=== PATIENT | male | born 1995 | race Caucasian/White ===

== ENCOUNTER 2020-10-26 13:10 | Emergency (ER) | payer SELFPAY ==
[~2020-10-26] VITALS: Ht 177 cm; Wt 47.6 kg
--- NOTE | 2020-10-26 13:45 | ED General ---
General Chief Complaint: General Problems/Pain Stated Complaint: NEEDS ADDITIONAL TESTING Nursing Triage Note: pt presents to ed with complaints of wanting to get tested for HIV. pt denies any s/s or complaints but reports having an episode of unprotected sex recently. Source of Information: Patient Exam Limitations: No Limitations History of Present Illness Date Seen by Provider: Oct 26, 2020 Time Seen by Provider: 13:40 Initial Comments To ER with reports of needing to be tested for HIV. He had sexual intercourse for the first time ever on Tuesday night 2 days ago. This was unprotected and he does not know the woman. He asked her 4 times if she had an STD and then once again before leaving and she still denied having any STD. However, he is very anxious that she may have had HIV and would like to be tested and started on prep. He is very anxious. He has no symptoms. He went to counts include 234 beds at the [facility] and they referred him here. Timing/Duration: 1-2 Days Severity: Moderate Associated Systoms: Denies Symptoms Allergies and Home Medications Allergies Coded Allergies: No Known Drug Allergies (Unverified , 10/26/20) Home Medications No Active Prescriptions or Reported Meds Patient Home Medication List Home Medication List Reviewed: Yes Review of Systems Review of Systems Constitutional: see HPI EENTM: see HPI Respiratory: no symptoms reported Cardiovascular: no symptoms reported Genitourinary: no symptoms reported Musculoskeletal: no symptoms reported Skin: no symptoms reported Psychiatric/Neurological: No Symptoms Reported Hematologic/Lymphatic: No Symptoms Reported Immunological/Allergic: no symptoms reported Past Xfixjoa-[id number]-Rmnpwo Hx Patient Social History Tobacco Use?: Yes Tobacco type used: Cigarettes Smoking Status: Current Someday Smoker Substance use?: No Alcohol Use?: Yes Alcohol Frequency: Once in a while Pt feels they are or have been: No Immunizations Up To Date First/Initial COVID19 Vaccinat: september 20 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 oz. kg; 15.00 BMI Method: General Appearance: No Apparent Distress, WD/WN, Anxious Eyes: Bilateral Eye Normal Inspection, Bilateral Eye PERRL, Bilateral Eye EOMI HEENT: PERRL/EOMI, TMs Normal Neck: Full Range of Motion, Normal Inspection Respiratory: No Accessory Muscle Use, No Respiratory Distress Cardiovascular: Regular Rate, Rhythm, Normal Peripheral Pulses Gastrointestinal: Normal Bowel Sounds, Non Tender, Soft Extremity: Normal Capillary Refill, Normal Inspection Neurologic/Psychiatric: Alert, Oriented x3 Skin: Normal Color, Warm/Dry Progress/Results/Core Measures Suspected Sepsis SIRS Temperature: Pulse: 93 Respiratory Rate: 18 Blood Pressure 109 /92 Mean: 98 Results/Orders My Orders Orders - BRANDON WILSON APRN Hiv 1&2 Antibody (10/26/20 13:32) Neis Salty Dna Urine Test (10/26/20 13:32) Chlamydia Trachomatis Urine (10/26/20 13:32) Vital Signs/I&O 10/26/20 13:26 Temp 36.3 Pulse 93 Resp 18 B/P (MAP) 109/92 (98) Pulse Ox 99 Capillary Refill : Less Than 3 Seconds Blood Pressure Mean: 98 Departure Impression Primary Impression: Possible exposure to STD Disposition: 01 HOME, SELF-CARE Condition: Stable Departure-Patient Inst. Decision time for Depature: 13:43 Referrals: [facility] (PCP/Family) Primary Care Physician Patient Instructions: Sexually-Transmitted Diseases (DC) Add. Discharge Instructions: 1. Follow-up with [facility]. All discharge instructions reviewed with patient and/or family. Voiced understanding. Scripts Dolutegravir Sodium (Tivicay) 50 Mg Tablet 50 MG PO DAILY, #30 TAB Prov: BRANDON WILSON APRN 10/26/20 Emtricitabine/Tenofovir (Tdf) (Emtricitabine-Tenofv 200-300Mg) 1 Each Tablet 1 EACH PO DAILY, #30 TAB Prov: BRANDON WILSON APRN 10/26/20 Copy Copies To 1: DAVID CORTEZ MD, PETER J APRN Oct 26, 2020 13:45
[2020-10-26] MEDS ORDERED: DOLU50TA PO (13:50)
[2020-10-26] MEDS ORDERED: EMTR1TAB24 PO (13:50)
[2020-10-26 14:28] VITALS: BP 109/92
== END 2020-10-26 14:28 | disposition home or self-care (01) ==
LOC: ER 13:19
DX: Z20.2 Contact with and (suspected) exposure to infections with a predominantly sexual mode of transmission (principal); F17.210 Nicotine dependence, cigarettes, uncomplicated
CPT/HCPCS: 36415; 86703; 87491; 87591; 99282